=== PATIENT | female | born 1950 | race Caucasian/White ===

== ENCOUNTER 2017-05-05 09:26 | Outpatient (CLI) ==
--- NOTE | 2017-05-08 11:45 | MAMMO ---
EXAM: Digital screening mammogram with tomosynthesis HISTORY: Screening COMPARISON: 02/20/2016 FINDINGS: Digital MLO and CC views of the right and left breast were performed. Tomosynthesis was p erformed. Computer aided detection was utilized. There are scattered fibroglandular densities. Ther e is no evidence for mass, asymmetry, distortion, or suspicious calcifications in either breast. IMPRESSION: 1. No evidence of malignancy in the right or left breast. 2. Annual screening mammogram is recommended in one year. BIRADS category 1, negative examination
== END 2017-05-05 09:27 | disposition home or self-care (01) ==
LOC: RAD 09:26
PROVIDERS: ATTEND Internal Medicine
DX: Z12.31 Encounter for screening mammogram for malignant neoplasm of breast (principal)
CPT/HCPCS: 77067

== ENCOUNTER 2017-07-02 12:28 | Outpatient (CLI) ==
--- NOTE | 2017-07-02 13:26 | DI ---
EXAM: Chest two view, frontal and lateral views. HISTORY: Pleuritic chest pain. COMPARISON: 04/01/2012. FINDINGS: The heart size is normal. There is no pulmonary vascular congestion. The lungs are clear save for calcified granulomatous changes. No pleural effusion or pneumothorax is seen. No acute os seous abnormality identified. IMPRESSION: No acute cardiopulmonary process.
== END 2017-07-02 12:29 | disposition home or self-care (01) ==
LOC: RAD 12:28
PROVIDERS: ATTEND Internal Medicine
DX: R07.81 Pleurodynia (principal)

== ENCOUNTER 2017-09-01 07:45 | Outpatient (CLI) ==
--- NOTE | 2017-09-01 09:40 | CT ---
EXAM: CT of the thoracic spine without contrast History: Thoracic back pain. Comparison: Chest CT 09/01/2017 Technique: Multiplanar CT images through the thoracic spine were obtained without the administration of IV contrast Findings: Calcified granulomas within the spleen and mediastinum. Severe degenerative disc disease within the lower cervical spine. No acute fracture or subluxation of the thoracic spine. Mild chronic compression deformity involving superior endplate of T8. Prominen t intervertebral disc calcification seen at T10-T11. Mild to moderate multilevel degenerative disc s pace narrowing with endplate sclerosis and a few small osteophytes. Bony spinal canal is not signifi cantly compromised. No suspicious osseous lesions. No significant bony neural foraminal narrowing. Impression: 1. No acute osseous abnormality of the thoracic spine. 2. Mild to moderate degenerative disc disease of the thoracic spine. 3. Mild chronic compression deformity involving superior endplate of T8. 4. Severe degenerative disc disease seen within the visualized lower cervical spine.
--- NOTE | 2017-09-01 09:44 | CT ---
EXAM: CT chest with contrast HISTORY: Chest pain in the posterior left-sided rib with no known injury. COMPARISON: CT chest 04/02/2012 TECHNIQUE: Serial axial images of the chest were obtained after IV contrast was administered. These were obtained from the lung apices to the upper abdomen. FINDINGS: The thyroid is normal. Visualized vessels are unremarkable. There is no dissection, aneu rysm or stenosis. The heart is normal in size without pericardial effusion. There are multiple none nlarged mediastinal and hilar lymph nodes which are unchanged. There is no pneumothorax or pleural effusion. There is mild bibasilar atelectasis. There is no acut e consolidation, nodule or mass. The airways are patent. The osseous structures demonstrate no abnormality of the left ribs. The osseous structures demonstr ate a small superior endplate deformity at T9. Disc space material is noted at T11-T10. Soft tissue s in the upper abdomen are unremarkable. IMPRESSION: 1. No visualized rib fracture or acute cardiopulmonary process. 2. Mild scattered degenerative disease of the spine with superior endplate deformity at T9 which is age indeterminate. 3. Multiple nonenlarged mediastinal lymph nodes are likely reactive.
== END 2017-09-01 07:46 | disposition home or self-care (01) ==
LOC: RAD 07:45
PROVIDERS: ATTEND Internal Medicine
DX: R07.9 Chest pain, unspecified (principal); M54.6 Pain in thoracic spine; M85.80 Other specified disorders of bone density and structure, unspecified site
CPT/HCPCS: 36415; 82565

== ENCOUNTER 2018-07-14 07:50 | Outpatient (CLI) ==
--- NOTE | 2018-07-14 09:35 | MAMMO ---
EXAM: Bilateral digital screening mammogram (2-D and 3-D) History: Screening Comparison: Bilateral mammogram 05/05/2017 Findings: MLO and CC views of bilateral breasts demonstrate scattered fibroglandular breast parenchy ma. CAD was reviewed by the radiologist. Tomosynthesis was performed. Stable benign bilateral [address] calcifications. There are no dominant masses, no suspicious microcalcifications and no architectu ral distortions Impression: Benign stable mammogram. Recommend followup routine screening mammography in 1 year. BIRADS 2, benign
== END 2018-07-14 07:51 | disposition home or self-care (01) ==
LOC: RAD 07:50
PROVIDERS: ATTEND Internal Medicine
DX: Z12.31 Encounter for screening mammogram for malignant neoplasm of breast (principal)

== ENCOUNTER 2020-11-02 09:48 | Inpatient (IN) ==
[2020-11-02 10:10] LABS: BORDETELLA PARAPERTUSSIS (PCR) NOT DETECTED (NOT DETECT); BORDETELLA PERTUSSIS (PCR) NOT DETECTED (NOT DETECT); CHLAMYDIA PNEUMONIAE (PCR) NOT DETECTED (NOT DETECT); CORONAVIRUS 229E (PCR) NOT DETECTED (NOT DETECT); CORONAVIRUS HKU1 (PCR) NOT DETECTED (NOT DETECT); CORONAVIRUS NL63 (PCR) NOT DETECTED (NOT DETECT); CORONAVIRUS OC43 (PCR) NOT DETECTED (NOT DETECT); HUMAN METAPNEUMOVIRUS (PCR) NOT DETECTED (NOT DETECT); HUMAN RHINOVIRUS/ENTEROV (PCR) NOT DETECTED (NOT DETECT); INFLUENZA B (PCR) NOT DETECTED (NOT DETECT); MYCOPLASMA PNEUMONIAE (PCR) NOT DETECTED (NOT DETECT); PARAINFLUENZA VIRUS 1 (PCR) NOT DETECTED (NOT DETECT); PARAINFLUENZA VIRUS 2 (PCR) NOT DETECTED (NOT DETECT); PARAINFLUENZA VIRUS 3 (PCR) NOT DETECTED (NOT DETECT); PARAINFLUENZA VIRUS 4 (PCR) NOT DETECTED (NOT DETECT); RESPIRATORY SYNCYTIAL V (PCR) NOT DETECTED (NOT DETECT); SARS_COV_2 (PCR) NOT DETECTED (NOT DETECT)
[2020-11-02 10:57] LABS: ADENOVIRUS (PCR) NOT DETECTED (NOT DETECT)
[2020-11-02] MEDS ORDERED: NITROSTAT SL PRN (11:39)
[2020-11-02] MEDS ORDERED: ATROPINE SULFATE PFS IVP PRN (11:39)
[2020-11-02] MEDS ORDERED: TYLENOL PO PRN (11:39)
[2020-11-02] MEDS ORDERED: TORADOL IVP ONE ×2 (11:57→15:00)
[2020-11-02 12:00] LABS: BASOPHILS % (AUTO) 0.5 % (0.0-3.0); EOSINOPHILS % (AUTO) 0.4 % (0.0-7.0); HEMATOCRIT 46.2 % (37.0-47.0); HEMOGLOBIN 15.1 g/dl (12.0-16.0); IMMATURE GRANULOCYTE % (AUTO) 0.3 % (0.0-5.0); LYMPHOCYTES # (AUTO) 1.2 K/uL (0.60-3.4); MEAN CORPUSCULAR HEMOGLOBIN 29.2 pg (27.0-31.0); MEAN CORPUSCULAR HGB CONC 32.7 (31.8-35.4); MEAN CORPUSCULAR VOLUME 89.4 fl (81.0-99.0); MONOCYTES # (AUTO) 0.5 K/uL (0.4-2.0); NEUTROPHILS # (AUTO) 5.4 K/ul (2.0-6.9); NEUTROPHILS % (AUTO) 74.8 % (42.2-75.2); PLATELET COUNT 239 10^3/uL (140-440); RED BLOOD COUNT 5.17 10^6/ul (4.20-5.40); WHITE BLOOD COUNT 7.28 K/ul (4.6-10.2)
[2020-11-02] MEDS ORDERED: DUONEB NEB SCH (12:00)
[2020-11-02 12:11] LABS: ALANINE AMINOTRANSFERASE 39.8 U/L (0-35); ALBUMIN 4.54 g/dL (3.5-5.0); ALKALINE PHOSPHATASE 96.9 U/L (53-141); ASPARTATE AMINO TRANSFERASE 44.6 U/L (14-36); BILIRUBIN,TOTAL 0.33 mg/dL (0.2-1.3); CARBON DIOXIDE 21.5 mmol/L (22-30.0); CHLORIDE 108.7 mmol/L (98-107); CREATINE KINASE 23.4 U/L (30-135); CREATININE 0.88 mg/dL (0.60-1.30); POTASSIUM 3.63 mmol/L (3.5-5.1); SODIUM 139.9 mmol/L (134.5-145); TOTAL PROTEIN 7.18 g/dL (6.3-8.2)
[2020-11-02 12:12] VITALS: BMI 25.7
[2020-11-02 12:24] LABS: TROPONIN I < 0.012 ng/ml (0.0000-0.120)
[2020-11-02] MEDS: DEXTROSE 5%-1/2NS IV SOLUTION 1,000 ML IV SCH (13:05)
[2020-11-02] MEDS: DECADRON IM SCH (13:06)
[2020-11-02] MEDS: ROCEPHIN 1 GM/50 ML D5W 1 GM/50 ML BAG IV SCH (13:06)
[2020-11-02] MEDS: ZITHROMAX PO SCH (13:07)
--- NOTE | 2020-11-02 13:44 | DI ---
EXAM: CHEST FRONTAL VIEW HISTORY: Shortness of breath, left pleuritic pain COMPARISON: 05/28/2020 FINDINGS: Heart size and mediastinum within normal limits. Lungs are free of infiltrate. No c onsolidation or pleural fluid. There is no pneumothorax or acute bony finding. IMPRESSION: No acute cardiopulmonary process.
[2020-11-02] MEDS: DUONEB NEB SCH ×2 (13:51→20:00)
[2020-11-02 15:14] LABS: BILIRUBIN,URINE Negative (NEGATIVE); CLARITY,URINE Clear (CLEAR); COLOR,URINE Yellow (YELLOW); GLUCOSE, URINE (UA) Negative (NEGATIVE); KETONES,URINE Negative (NEGATIVE); LEUKOCYTE ESTERASE ,URINE Trace (NEGATIVE); NITRITE,URINE Negative (NEGATIVE); PH,URINE 6.5 (5-9); PROTEIN,URINE Negative (NEGATIVE); URINE, BLOOD Negative (NEGATIVE); UROBILINOGEN,URINE 0.2 (0.2)
[2020-11-02 15:22] LABS: YEAST,URINE 1+ (NOT PRESENT)
[2020-11-02 15:23] LABS: MUCUS,URINE 2+ (NOT PRESENT)
[2020-11-02 20:01] LABS: CREATINE KINASE 20.3 U/L (30-135)
[2020-11-02 20:14] LABS: TROPONIN I < 0.012 ng/ml (0.0000-0.120)
[2020-11-02] MEDS: TOPAMAX PO SCH (20:21)
[2020-11-02] MEDS: BUSPAR PO SCH (20:22)
[2020-11-02] MEDS: TRILEPTAL PO SCH (20:22)
[2020-11-02] MEDS: COGENTIN PO SCH (20:23)
[2020-11-02] MEDS: ATIVAN PO SCH (20:23)
[2020-11-02] MEDS: PHENERGAN WITH CODEINE 6.25/10 MG/5 ML PO PRN (22:13)
[2020-11-03 05:14] LABS: BASOPHILS % (AUTO) 0.4 % (0.0-3.0); EOSINOPHILS % (AUTO) 0.8 % (0.0-7.0); HEMATOCRIT 42.1 % (37.0-47.0); HEMOGLOBIN 13.6 g/dl (12.0-16.0); IMMATURE GRANULOCYTE % (AUTO) 0.2 % (0.0-5.0); LYMPHOCYTES # (AUTO) 1.3 K/uL (0.60-3.4); LYMPHOCYTES % (AUTO) 26.1 (10.0-50.0); MEAN CORPUSCULAR HEMOGLOBIN 28.9 pg (27.0-31.0); MEAN CORPUSCULAR HGB CONC 32.3 (31.8-35.4); MEAN CORPUSCULAR VOLUME 89.4 fl (81.0-99.0); MONOCYTES # (AUTO) 0.4 K/uL (0.4-2.0); MONOCYTES % (AUTO) 9.1 (0-10); NEUTROPHILS # (AUTO) 3.1 K/ul (2.0-6.9); NEUTROPHILS % (AUTO) 63.4 % (42.2-75.2); PLATELET COUNT 201 10^3/uL (140-440); RDW COEFFICIENT OF VARIATION 12.6 % (11.6-14.8); RED BLOOD COUNT 4.71 10^6/ul (4.20-5.40); WHITE BLOOD COUNT 4.83 K/ul (4.6-10.2)
[2020-11-03 05:31] LABS: ALANINE AMINOTRANSFERASE 43.7 U/L (0-35); ALBUMIN 3.92 g/dL (3.5-5.0); ALKALINE PHOSPHATASE 84.8 U/L (53-141); BILIRUBIN,TOTAL 0.34 mg/dL (0.2-1.3); BLOOD UREA NITROGEN 13.6 mg/dL (7-17); CALCIUM 8.85 mg/dL (8.4-10.2); CARBON DIOXIDE 20.3 mmol/L (22-30.0); CHLORIDE 112.9 mmol/L (98-107); CREATININE 0.67 mg/dL (0.60-1.30); GLUCOSE 92.2 mg/dL (74-106); POTASSIUM 3.84 mmol/L (3.5-5.1); SODIUM 140.4 mmol/L (134.5-145); TOTAL PROTEIN 6.18 g/dL (6.3-8.2)
[2020-11-03] MEDS: DEXTROSE 5%-1/2NS IV SOLUTION 1,000 ML IV SCH ×2 (05:43→19:28)
[2020-11-03] MEDS: SYNTHROID PO SCH (05:45)
[2020-11-03] MEDS: DUONEB NEB SCH ×4 (06:18→19:55)
[2020-11-03] MEDS ORDERED: TORADOL IVP ONE (08:23)
[2020-11-03] MEDS: NON-FORMULARY MEDICATION (Vortioxetine [Trintellix] 20 mg Tablet) PO SCH (09:26)
[2020-11-03] MEDS: DECADRON IM SCH (09:26)
[2020-11-03] MEDS: ZITHROMAX PO SCH (09:27)
[2020-11-03] MEDS: BUSPAR PO SCH ×2 (09:28→20:41)
[2020-11-03] MEDS: TRILEPTAL PO SCH ×2 (09:29→20:42)
[2020-11-03] MEDS: WELLBUTRIN XL PO SCH (09:29)
[2020-11-03] MEDS: ROCEPHIN 1 GM/50 ML D5W 1 GM/50 ML BAG IV SCH (09:30)
[2020-11-03] MEDS: TOPAMAX PO SCH (20:41)
[2020-11-03] MEDS: COGENTIN PO SCH (20:42)
[2020-11-03] MEDS: ATIVAN PO SCH (20:43)
[2020-11-03] MEDS: PHENERGAN WITH CODEINE 6.25/10 MG/5 ML PO PRN (21:28)
[2020-11-04] MEDS: DUONEB NEB SCH ×4 (04:55→20:55)
[2020-11-04] MEDS: SYNTHROID PO SCH (06:07)
[2020-11-04 06:08] LABS: BASOPHILS % (AUTO) 0.7 % (0.0-3.0); EOSINOPHILS # (AUTO) 0.1 K/ul (0.0-0.7); EOSINOPHILS % (AUTO) 2.3 % (0.0-7.0); HEMATOCRIT 41.3 % (37.0-47.0); HEMOGLOBIN 13.2 g/dl (12.0-16.0); IMMATURE GRANULOCYTE % (AUTO) 0.5 % (0.0-5.0); LYMPHOCYTES # (AUTO) 1.3 K/uL (0.60-3.4); LYMPHOCYTES % (AUTO) 29.5 (10.0-50.0); MEAN CORPUSCULAR HEMOGLOBIN 28.9 pg (27.0-31.0); MEAN CORPUSCULAR VOLUME 90.4 fl (81.0-99.0); MONOCYTES # (AUTO) 0.4 K/uL (0.4-2.0); MONOCYTES % (AUTO) 8.4 (0-10); NEUTROPHILS # (AUTO) 2.6 K/ul (2.0-6.9); NEUTROPHILS % (AUTO) 58.6 % (42.2-75.2); PLATELET COUNT 177 10^3/uL (140-440); RED BLOOD COUNT 4.57 10^6/ul (4.20-5.40)
[2020-11-04 06:28] LABS: ALANINE AMINOTRANSFERASE 37.3 U/L (0-35); ALBUMIN 3.69 g/dL (3.5-5.0); ALKALINE PHOSPHATASE 79.4 U/L (53-141); ASPARTATE AMINO TRANSFERASE 27.9 U/L (14-36); BILIRUBIN,TOTAL 0.26 mg/dL (0.2-1.3); BLOOD UREA NITROGEN 10.3 mg/dL (7-17); CALCIUM 8.65 mg/dL (8.4-10.2); CARBON DIOXIDE 20.2 mmol/L (22-30.0); CHLORIDE 112.9 mmol/L (98-107); CREATININE 0.74 mg/dL (0.60-1.30); GLUCOSE 89.5 mg/dL (74-106); POTASSIUM 3.44 mmol/L (3.5-5.1); TOTAL PROTEIN 5.93 g/dL (6.3-8.2)
[2020-11-04] MEDS: DEXTROSE 5%-1/2NS IV SOLUTION 1,000 ML IV SCH (08:56)
[2020-11-04] MEDS: DECADRON IM SCH (08:58)
[2020-11-04] MEDS ORDERED: VITAMIN D PO SCH (09:00)
[2020-11-04] MEDS: ROCEPHIN 1 GM/50 ML D5W 1 GM/50 ML BAG IV SCH (09:14)
[2020-11-04] MEDS: ZITHROMAX PO SCH (09:15)
[2020-11-04] MEDS: NON-FORMULARY MEDICATION (Vortioxetine [Trintellix] 20 mg Tablet) PO SCH (09:15)
[2020-11-04] MEDS: TRILEPTAL PO SCH ×2 (09:16→21:19)
[2020-11-04] MEDS: MOBIC PO SCH (09:17)
[2020-11-04] MEDS: BUSPAR PO SCH ×2 (09:18→21:20)
[2020-11-04] MEDS: WELLBUTRIN XL PO SCH (09:20)
[2020-11-04] MEDS: PRAVACHOL PO SCH (09:20)
[2020-11-04] MEDS: TOPAMAX PO SCH (21:18)
[2020-11-04] MEDS: ATIVAN PO SCH (21:19)
[2020-11-04] MEDS: COGENTIN PO SCH (21:19)
[2020-11-04] MEDS: PHENERGAN WITH CODEINE 6.25/10 MG/5 ML PO PRN (22:44)
[2020-11-05] MEDS: DUONEB NEB SCH ×3 (04:55→14:35)
[2020-11-05] MEDS: SYNTHROID PO SCH (06:11)
[2020-11-05 07:08] LABS: BASOPHILS # (AUTO) 0.1 K/uL (0-0.2); BASOPHILS % (AUTO) 1.1 % (0.0-3.0); EOSINOPHILS # (AUTO) 0.1 K/ul (0.0-0.7); EOSINOPHILS % (AUTO) 3.1 % (0.0-7.0); HEMATOCRIT 42.6 % (37.0-47.0); HEMOGLOBIN 13.7 g/dl (12.0-16.0); IMMATURE GRANULOCYTE % (AUTO) 0.4 % (0.0-5.0); LYMPHOCYTES # (AUTO) 1.2 K/uL (0.60-3.4); LYMPHOCYTES % (AUTO) 27.3 (10.0-50.0); MEAN CORPUSCULAR HGB CONC 32.2 (31.8-35.4); MEAN CORPUSCULAR VOLUME 90.1 fl (81.0-99.0); MONOCYTES # (AUTO) 0.4 K/uL (0.4-2.0); MONOCYTES % (AUTO) 8.4 (0-10); NEUTROPHILS # (AUTO) 2.7 K/ul (2.0-6.9); NEUTROPHILS % (AUTO) 59.7 % (42.2-75.2); PLATELET COUNT 165 10^3/uL (140-440); RDW COEFFICIENT OF VARIATION 13.2 % (11.6-14.8); RED BLOOD COUNT 4.73 10^6/ul (4.20-5.40); WHITE BLOOD COUNT 4.51 K/ul (4.6-10.2)
[2020-11-05 07:44] LABS: ALANINE AMINOTRANSFERASE 29.8 U/L (0-35); ALBUMIN 3.75 g/dL (3.5-5.0); ALKALINE PHOSPHATASE 83.8 U/L (53-141); ASPARTATE AMINO TRANSFERASE 24.7 U/L (14-36); BILIRUBIN,TOTAL 0.3 mg/dL (0.2-1.3); BLOOD UREA NITROGEN 9.2 mg/dL (7-17); CALCIUM 8.89 mg/dL (8.4-10.2); CARBON DIOXIDE 23.7 mmol/L (22-30.0); CHLORIDE 110.5 mmol/L (98-107); CREATININE 0.77 mg/dL (0.60-1.30); GLUCOSE 84.4 mg/dL (74-106); POTASSIUM 3.56 mmol/L (3.5-5.1); SODIUM 139.6 mmol/L (134.5-145); TOTAL PROTEIN 5.97 g/dL (6.3-8.2)
--- NOTE | 2020-11-05 07:47 | CT ---
EXAM: CT chest without contrast HISTORY: Pneumonia COMPARISON: 10/25/2020, 11/03/2019 TECHNIQUE: Multiple axial images of the chest were obtained without contrast. Images were reformatte d in the sagittal and coronal planes. FINDINGS: Normal appearance thoracic inlet and thyroid gland. No enlarged axillary or mediastinal lymph nodes. Lack of IV contrast limits evaluation for hilar adenopathy. Normal sized heart and thoracic aorta. Esophagus within normal limits. Small hiatal hernia. Patent central airways. No pneumothorax, ple ural effusion or consolidation. Linear band-like atelectasis or scar in the lung bases, unchanged.. Mild biapical pleural scarring is unchanged. Persistent but decreased bilateral patchy subpleural g round-glass opacities compared to 10/25/2020. Stable 0.6 cm nodule in the anterior right middle lobe base (axial 46). No new pulmonary nodule. No acute findings within the visualized upper abdomen. Cholelithiasis. No acute osseous abnormality u nchanged chronic T1 superior endplate compression deformity with Schmorl's node.. IMPRESSION: 1. Persistent but decreased patchy bilateral ground-glass opacities, which may represent infectious/ inflammatory change. 6-month follow-up CT recommended. 2. Stable 0.6 cm right middle lobe nodule. 3. No new pulmonary findings. 4. Cholelithiasis. All CT scans are performed using dose optimization techniques as appropriate to the performed exam an d include at least one of the following: Automated exposure control, adjustment of the mA and/or kV according t o size, and the use of iterative reconstruction technique.
[2020-11-05] MEDS: ROCEPHIN 1 GM/50 ML D5W 1 GM/50 ML BAG IV SCH (08:57)
[2020-11-05] MEDS: WELLBUTRIN XL PO SCH (08:58)
[2020-11-05] MEDS: TRILEPTAL PO SCH ×2 (08:58→20:17)
[2020-11-05] MEDS: DECADRON IM SCH (08:59)
[2020-11-05] MEDS: BUSPAR PO SCH ×2 (08:59→20:16)
[2020-11-05] MEDS: NON-FORMULARY MEDICATION (Vortioxetine [Trintellix] 20 mg Tablet) PO SCH (09:45)
[2020-11-05] MEDS: DEXTROSE 5%-1/2NS IV SOLUTION 1,000 ML IV SCH (11:26)
--- NOTE | 2020-11-05 12:53 | HP ---
DATE OF SERVICE: 11/02/2020 REASON FOR HOSPITALIZATION/HISTORY OF PRESENT ILLNESS: ER followup 10/27/2020. Complains of cough, congestion, pleuritic pain left sided for 7 days. She is weak with poor appetite and fatigue. Cough medication helps at night. No symptoms of CAD. PAST MEDICAL HISTORY: COPD/Asthma MDDD-Dr. Burnette History of UTI's MVP GERD Osteopenia Neuropathy PAST SURGICAL HISTORY: Hysterectomy Back surgery REVIEW OF SYSTEMS: CONSTITUTIONAL: Fever, Fatigue. HEENT: No sinus drainage, no sore throat. RESPIRATORY: Cough, no congestion. CARDIOVASCULAR: Atypical chest pain for coronary artery disease. No angina, CHF symptoms, palpitations. Shortness of breath. GASTROINTESTINAL: No melena or abdominal pain. No GERD. GENITOURINARY: No hematuria, no prostatism, no polyuria. MESSENGER COPY: No blackout, Dizziness, no headache, no double vision. MUSCULOSKELETAL: Osteoarthritis pain, no joint swelling. ENDOCRINE: Weight loss; 8 pounds in 6 weeks, no weight gain. Appetite poor. SKIN: Not dry, no rash. PSYCHIATRIC: Not anxious, no depression, no suicidal thoughts, no homicidal thoughts. SOCIAL HISTORY: Marital Status: . Alcohol Usage: No. Tobacco Usage: No. FAMILY HISTORY: Father Mother Brother 0 Sister 2 MEDICATIONS: Abilify 2mg HS Bupropion 300mg daily Trintellix 20mg daily Trileptal 150mg half tablet BID Buspar 15mg BID Pravastatin 40mg three times a day Topamax 100mg three tablets daily Mobic 15mg three times a week Vitamin D3 1000mg once weekly Levothyroxine 0.025mg Lorazepam 1mg at HS Benztropin 0.5mg at bedtime ALLERGIES: TESSALON PERLES-RASH PHYSICAL EXAMINATION: V/S: Pulse 84, blood pressure 118/70, temperature 99.3, oxygen saturation 99%. BMI 25.4, height 5'4, weight 148.4. GENERAL APPEARANCE: Oriented times three. Dryness. HEENT: Normal. NECK: No JVP, no bruits. RESPIRATORY: Decreased breath sounds. CARDIOVASCULAR: S1, S2, no S3, no murmur. No cyanosis, clubbing. No ascites. GI/ABDOMEN: No tenderness. Bowel sounds are active. EXTREMITIES: No edema, pulses +1, equal. MESSENGER COPY: Deep tendon reflexes, sensory, motor and gait all normal. RECTAL: Coloscopy Dr. Garcia 04/03/2021/PELVIC: Advised yearly, Dr. Sheth 2019. Mammogram 10/05/2020 MM. . ASSESSMENT: 1. Left sided pleuritic pain/ bronchitis 2. Fatigue 3. Shortness of breath 4. Weight loss of 8 pounds in 6 weeks 5. COVID positive 05/18/2020 6. History of UTI 7. Mitral valve prolapse 8. History of COPD/Asthma 9. Status post lumbar surgery ____02/20 10.Left sciatica 11.Int pubic ramus fracture-fall 07/21 12.History of left leg edema 13.History of pleurisy 14.Dyslipidemia PLAN: 1. Routine telemetry orders 2. Continue all home medications 3. Discontinue Medrol dose pack 4. 1000cc D 5 1/2 normal saline 12 hourly 5. 1cc Decadron IM now and QAM 6. Sputum for culture and sensitivity 7. Zithromax 500mg PO daily times three day s 8. Rocephin 1 gram IV today and QAM 9. Oxygen 2 liters canula 10.U/A culture and sensitivity. 11.T4/TSH 12.Phenergan with codeine two tsp PO QID PRN 13.DUO NEBS WID TIME SPENT: More than 70 minutes. MTDD
[2020-11-05] MEDS: VENTOLIN HFA (PER PUFF-WITH SPACER) IH SCH ×2 (14:32→20:05)
[2020-11-05] MEDS: ATROVENT HFA INHALER (PER PUFF-WITH SPACER) IH SCH ×2 (14:33→20:05)
[2020-11-05] MEDS: ATIVAN PO SCH (20:17)
[2020-11-05] MEDS: TOPAMAX PO SCH (20:17)
[2020-11-05] MEDS: COGENTIN PO SCH (20:18)
[2020-11-05] MEDS: PHENERGAN WITH CODEINE 6.25/10 MG/5 ML PO PRN (21:32)
[2020-11-06] MEDS: VENTOLIN HFA (PER PUFF-WITH SPACER) IH SCH ×2 (05:10→10:23)
[2020-11-06] MEDS: ATROVENT HFA INHALER (PER PUFF-WITH SPACER) IH SCH ×2 (05:10→10:23)
[2020-11-06 05:15] LABS: BASOPHILS % (AUTO) 0.8 % (0.0-3.0); EOSINOPHILS # (AUTO) 0.1 K/ul (0.0-0.7); EOSINOPHILS % (AUTO) 2.1 % (0.0-7.0); HEMATOCRIT 42.6 % (37.0-47.0); HEMOGLOBIN 13.5 g/dl (12.0-16.0); IMMATURE GRANULOCYTE % (AUTO) 0.6 % (0.0-5.0); LYMPHOCYTES # (AUTO) 1.6 K/uL (0.60-3.4); LYMPHOCYTES % (AUTO) 29.2 (10.0-50.0); MEAN CORPUSCULAR HEMOGLOBIN 28.7 pg (27.0-31.0); MEAN CORPUSCULAR HGB CONC 31.7 (31.8-35.4); MEAN CORPUSCULAR VOLUME 90.6 fl (81.0-99.0); MONOCYTES # (AUTO) 0.5 K/uL (0.4-2.0); MONOCYTES % (AUTO) 9.2 (0-10); NEUTROPHILS # (AUTO) 3.1 K/ul (2.0-6.9); NEUTROPHILS % (AUTO) 58.1 % (42.2-75.2); PLATELET COUNT 171 10^3/uL (140-440); RDW COEFFICIENT OF VARIATION 13.1 % (11.6-14.8)
[2020-11-06 05:28] LABS: ALANINE AMINOTRANSFERASE 23.2 U/L (0-35); ALBUMIN 3.57 g/dL (3.5-5.0); ALKALINE PHOSPHATASE 85.1 U/L (53-141); ASPARTATE AMINO TRANSFERASE 22.8 U/L (14-36); BILIRUBIN,TOTAL 0.24 mg/dL (0.2-1.3); BLOOD UREA NITROGEN 11.6 mg/dL (7-17); CALCIUM 9.03 mg/dL (8.4-10.2); CARBON DIOXIDE 25.6 mmol/L (22-30.0); CHLORIDE 109.7 mmol/L (98-107); CREATININE 0.9 mg/dL (0.60-1.30); GLUCOSE 89.6 mg/dL (74-106); POTASSIUM 4.16 mmol/L (3.5-5.1); SODIUM 140.8 mmol/L (134.5-145); TOTAL PROTEIN 5.65 g/dL (6.3-8.2)
[2020-11-06 05:52] VITALS: BP 109/66; TEMP 97.4
[2020-11-06] MEDS: SYNTHROID PO SCH (05:53)
[2020-11-06] MEDS ORDERED: OMNICEF PO SCH (09:00)
--- NOTE | 2020-11-06 09:14 | PCM.PROG ---
Attending Provider: ATTENDING PROVIDER: Dr. NEVAEH BARRERA This patient is seen with Muna Rodas, Nurse Practitioner. DATE OF SERVICE: 11/06/20 SUBJECTIVE: This 70 year old /WHITE F was hospitalized 11/02/20. Pleuritic pain has resolved. Cough has improved. The patient states she is feeing better. Up and about eating well. Ready to go home. REVIEW OF SYSTEMS: CONSTITUTIONAL: No night sweats. Fatigue. No fever or chills. HEENT: Eyes: No visual changes. No eye pain. No eye discharge. ENT: No runny nose. No epistaxis. No sinus pain. No odynophagia. No congestion. RESPIRATORY: Cough, no congestion. No hemoptysis. No shortness of breath. CARDIOVASCULAR: No angina symptoms. No CHF symptoms. No atypical chest pain for CAD. No palpitations. No orthopnea. GASTROINTESTINAL: No abdominal pain. No nausea or vomiting. No diarrhea or constipation. No hematemesis. No hematochezia. GENITOURINARY: No urgency. No frequency. No dysuria. No hematuria. No obstructive symptoms. No discharge. No pain. No significant abnormal bleeding. MUSCULOSKELETAL: No musculoskeletal pain; no joint swelling. NEUROLOGICAL: Awake, alert, oriented to time, place and person. No headache. No neck pain. No syncope. No seizures. No dizziness. PSYCHIATRIC: Not anxious. No depression. No suicidal thoughts. No homicidal thoughts. SKIN: No rash. No lesions. No wounds. ENDOCRINE: No unexplained weight loss. No weight gain. HEMATOLOGIC/LYMPHATIC: No anemia. No purpura. No petechiae. No prolonged or excessive bleeding. No palpable lymph nodes. PHYSICAL EXAMINATION: GENERAL: The patient is awake, alert and oriented, lying in bed in no distress. VITAL SIGNS: Temperature 97.4 F, Pulse 63, Respiratory Rate 16, BP 109/66, Pulse Ox 98% HEENT: Head normocephalic, atraumatic. Eyes: Extraocular muscles are intact. Pupils are equal, round and reactive to light and accommodation. Ears: No lesions. Nose appeared normal. Throat: No exudate or erythema. NECK: Supple. No JVD, no carotid bruit. No lymphadenopathy or thyromegaly. LUNGS: Diminished breath sounds. Clear to auscultation. Percussion note normal. Chest symmetrical. HEART: S1, S2, no S3. No murmurs. No cyanosis or clubbing. No ascites. Pulses: Dorsalis pedis and posterior tibial pulses +1 to +2 both sides. ABDOMEN: Soft. Non-tender. Bowel sounds active. No CVA tenderness. No mass fe lt. EXTREMITIES: No edema. Full range of motion of all extremities, equal. NEUROLOGIC: No focal deficit. Cranial nerves II through XII are grossly intact. No headache. No double vision. SKIN: Not dry. Intact. Turgor-normal. LYMPHATIC: No palpable lymph nodes/no lymphedema. MUSCULOSKELETAL: Normal joints with no swelling. Muscle tone is normal. LAB REVIEW: 11/06/20 04:55 11/06/20 04:55 11/06/20 04:55: Sodium 140.8, Potassium 4.16, Chloride 109.7 H, Carbon Dioxide 25.6, Anion Gap 9.66, BUN 11.6, Creatinine 0.90, Estimated GFR (MDRD) 62.00, BUN/Creatinine Ratio 12.88, Glucose 89.6, Calcium 9.03, Total Bilirubin 0.24, AST 22.8, ALT 23.2, Alkaline Phosphatase 85.1, Total Protein 5.65 L, Albumin 3.57, Globulin 2.08, Albumin/Globulin Ratio 1.71 11/06/20 04:55: WBC 5.30, RBC 4.70, Hgb 13.5, Hct 42.6, MCV 90.6, MCH 28.7, MCHC 31.7 L, RDW Coeff of Ekta 13.1, Plt Count 171, Immature Gran % (Auto) 0.6, Neut % (Auto) 58.1, Lymph % (Auto) 29.2, Prentiss % (Auto) 9.2, Eos % (Auto) 2.1, Baso % (Auto) 0.8, Neut # (Auto) 3.1, Lymph # (Auto) 1.6, Prentiss # (Auto) 0.5, Eos # (Auto) 0.1, Baso # (Auto) 0.0, Immature Gran # (Auto) 0.0 ASSESSMENT: Please see below. 1. Left sided pleuritic pain 2. Acute pneumonitis 2. History of COVID May of 2020 PLAN: 1. Discharge home 2. Omnicef 300mg BID for 7 days 3. Prednisone 20mg BID for 3 days and then daily for 4 days 4. Albuterol inhaler two puff TID Plan and coordination of the patient's care discussed in the presence of Demand Manager and nurse. SCRIBED BY: Ed COLVIN scribed while in presence of service performed by Dr. Barrera/Muna Rodas APRN on 11/06/20 ([id number])
[2020-11-06] MEDS: TRILEPTAL PO SCH (09:30)
[2020-11-06] MEDS: PRAVACHOL PO SCH (09:30)
[2020-11-06] MEDS: WELLBUTRIN XL PO SCH (09:30)
[2020-11-06] MEDS: MOBIC PO SCH (09:30)
[2020-11-06] MEDS: DECADRON IM SCH (09:31)
[2020-11-06] MEDS: BUSPAR PO SCH (09:31)
[2020-11-06] MEDS: NON-FORMULARY MEDICATION (Vortioxetine [Trintellix] 20 mg Tablet) PO SCH (09:32)
--- NOTE | 2020-11-06 10:19 | PN ---
DATE OF SERVICE: 11/05/2020 SUBJECTIVE: 70 year old white female hospitalized with double pneumonia. Condition has slowly improved. Pleuritic has completely resolved. Hydration status has improved. Skin turgor is a lot better. REVIEW OF SYSTEMS: CONSTITUTIONAL: No night sweats. Fatigue. No fever or chills. Weak. HEENT: Eyes: No visual changes. No eye pain. No eye discharge. ENT: No runny nose. No epistaxis. No sinus pain. No sore throat. No odynophagia. No congestion. RESPIRATORY: Cough, no congestion. No hemoptysis. No shortness of breath. CARDIOVASCULAR: No angina symptoms. No CHF symptoms. No atypical chest pain for CAD. No palpitations. No PND. No orthopnea. GASTROINTESTINAL: No abdominal pain. No nausea or vomiting. No diarrhea or constipation. No hematemesis. No hematochezia. GENITOURINARY: No urgency. No frequency. No dysuria. No hematuria. No obstructive symptoms. No discharge. No pain. No significant abnormal bleeding. MUSCULOSKELETAL: No musculoskeletal pain; no joint swelling. NEUROLOGICAL: No headache. No neck pain. No syncope. No seizures. No dizziness. PSYCHIATRIC: Not anxious. No depression. No suicidal thoughts. No homicidal thoughts. SKIN: No rash. No lesions. No wounds. ENDOCRINE: No unexplained weight loss. No weight gain. HEMATOLOGIC/LYMPHATIC: No anemia. No purpura. No petechiae. No prolonged or excessive bleeding. No palpable lymph nodes. PHYSICAL EXAMINATION: VITAL SIGNS: Temperature 97.4, pulse 63, respiratory rate 18, blood pressure 150/74 and pulse ox 99%. HEENT: Head normocephalic, atraumatic. Eyes: Extraocular muscles are intact. Pupils are equal, round and reactive to light and accommodation. Ears: No lesions. Nose appeared normal. Throat: No exudate or erythema. NECK: Supple. No JVD, no carotid bruit. No lymphadenopathy or thyromegaly. LUNGS: Dry crepitations, bilaterally. Clear to auscultation. Percussion note normal. Chest symmetrical. HEART: S1, S2, no S3. No murmurs. No cyanosis or clubbing. No ascites. Pulses: Dorsalis pedis and posterior tibial pulses +1 to +2 bilaterally. ABDOMEN: Soft. Nontender. Bowel sounds active. No CVA tenderness. No mass felt. EXTREMITIES: No edema. Full range of motion of all extremities, equal. NEUROLOGIC: No focal deficit. Cranial nerves II through XII are grossly intact. No headache. No double vision. SKIN: Not dry. Intact. Turgor - better. LYMPHATIC: No palpable lymph nodes/no lymphedema. MUSCULOSKELETAL: Normal joints with no swelling. Muscle tone is normal. LABS: Potassium 3.[address] scan of the chest showed improvement, less patchy infiltrate, Cholelithiasis noted. Explained all the finding in detail with the patient. ASSESSMENT: 1. Bilateral pneumonia, clinically and radiographically improvement 2. Status post COVID almost 6 months. 3. Cholelithiasis asymptomatic. PLAN: 1. Continue all the medication including antibiotics, steroids and NEBS 2. The patient is off IV fluids 3. Encourage the patient to eat and walk. CONDITION: Improving. TIME SPENT: More than 30 minutes. Plan and coordination of the patient's care discussed in the presence of nurse. KRYSTAL
--- NOTE | 2020-11-06 11:46 | PN ---
DATE OF SERVICE: 11/03/20 SUBJECTIVE: The patient was seen and examined this morning. The patient's condition has improved. The patient says she is feeling a lot better. Hydration status seems to have improved. Appetite has improved. REVIEW OF SYSTEMS: CONSTITUTIONAL: No night sweats. No fatigue, malaise, lethargy. No fever or chills. HEENT: Eyes: No visual changes. No eye pain. No eye discharge. ENT: No runny nose. No epistaxis. No sinus pain. No sore throat. No odynophagia. No congestion. RESPIRATORY: Mild cough, no congestion. No hemoptysis. Shortness of breath. CARDIOVASCULAR: Pleuritic pain has practically subsided. No angina symptoms. No CHF symptoms. No atypical chest pain for CAD. No palpitations. No PND. No orthopnea. GASTROINTESTINAL: Appetite has improved. No abdominal pain. No nausea or vomiting. No diarrhea or constipation. No hematemesis. No hematochezia. GENITOURINARY: No urgency. No frequency. No dysuria. No hematuria. No obstructive symptoms. No discharge. No pain. No significant abnormal bleeding. MUSCULOSKELETAL: No musculoskeletal pain; no joint swelling. NEUROLOGICAL: No headache. No neck pain. No syncope. No seizures. No dizziness. PSYCHIATRIC: Not anxious. No depression. No suicidal thoughts. No homicidal thoughts. SKIN: No rash. No lesions. No wounds. ENDOCRINE: No unexplained weight loss. No weight gain. HEMATOLOGIC/LYMPHATIC: No anemia. No purpura. No petechiae. No prolonged or excessive bleeding. No palpable lymph nodes. PHYSICAL EXAMINATION: HEENT: Head normocephalic, atraumatic. Eyes: Extraocular muscles are intact. Pupils are equal, round and reactive to light and accommodation. Ears: No lesions. Nose appeared normal. Throat: No exudate or erythema. NECK: Supple. No JVD, no carotid bruit. No lymphadenopathy or thyromegaly. LUNGS: Decreased breath sounds but clear to auscultation. Percussion note normal. Chest symmetrical. HEART: S1, S2, no S3. No murmurs. No cyanosis or clubbing. No ascites. Pulses: Dorsalis pedis and posterior tibial pulses +1 to +2 bilaterally. ABDOMEN: Soft. Nontender. Bowel sounds active. No CVA tenderness. No mass felt. EXTREMITIES: No edema. Full range of motion of all extremities, equal. NEUROLOGIC: No focal deficit. Cranial nerves II through XII are grossly intact. No headache. No double vision. SKIN: Not dry. Intact. Turgor - normal. LYMPHATIC: No palpable lymph nodes/no lymphedema. MUSCULOSKELETAL: Normal joints with no swelling. Muscle tone is normal. ASSESSMENT: 1. BILATERAL PNEUMONITIS WITH ZITHROMAX, ROCEPHIN, STEROIDS, NEBS. 2. THE PATIENT HAD POOR APPETITE AND DEHYDRATION WHICH IS TREATED WITH IV FLUIDS. CONDITION HAS IMPROVED. PLAN: 1. WILL CONTINUE THE SAME MANAGEMENT. The patient's is present in the room. He is happy with the patient's progress. TIME SPENT: More than 30 minutes. Plan and coordination of the patient's care discussed in the presence of nurse. KRYSTAL
--- NOTE | 2020-11-06 12:42 | CM.DICTOOL ---
ADMISSION: 11/02/20 11:19 DISCHARGE: NOVEMBER 06, 2020 DATE OF SERVICE: 11/06/20 FINAL DIAGNOSIS PNEUMONITIS PLEURITIC PAIN, LEFT CHEST COPD ASTHMA DYSLIPIDEMIA HYPOTHYROIDISM GERD NEUROPATHY COVID (05/2020) MITRAL VALVE PROLAPSE PUBIC RAMUS FRACTURE, 07/2019 SCIATICA, LEFT CHOLELITHIASIS LUMBAR SURGERY 02/2020 (DR. ANTOHNY) HYSTERECTOMY LAST VITALS Temp Pulse Resp BP Pulse Ox 97.4 F L 64 16 109/66 98 11/06/20 05:50 11/06/20 08:00 11/06/20 08:00 11/06/20 05:50 11/06/20 05:50 TAKE THESE MEDICATIONS AT HOME Albuterol Sulfate (Albuterol Sulfate (Ventolin Hfa) 18 Gm 1 Puff With Spacer) 2 puff IH RTTID ON LICENSE OF [facility] (NEW RX) Last Admin: 11/06/20 10:23 Dose: 2 puff Documented by: Benztropine Mesylate (Benztropine Mesylate 1 Mg Tablet) 0.5 mg PO BEDTIME ON LICENSE OF [facility] Last Admin: 11/05/20 20:18 Dose: 0.5 mg Documented by: Bupropion HCl (Bupropion Hcl 150 Mg Tab.Er.24h) 300 mg PO QAM ON LICENSE OF [facility] Last Admin: 11/06/20 09:30 Dose: 300 mg Documented by: Buspirone HCl (Buspirone Hcl 10 Mg Tablet) 15 mg PO BID [facility] Last Admin: 11/06/20 09:31 Dose: 15 mg Documented by: Cefdinir (Cefdinir 300 Mg Capsule) 300 mg PO Q12HR [facility] (NEW RX) Stop: 11/09/20 08:59 Last Admin: 11/06/20 09:30 Dose: 300 mg Documented by: Cholecalciferol (Cholecalciferol (Vitamin D3) 1,000 Unit (25 Mcg) Tablet) 1,000 unit PO ARANA ON LICENSE OF [facility] Last Admin: 11/04/20 09:18 Dose: 1,000 unit Documented by: Levothyroxine Sodium (Levothyroxine Sodium 25 Mcg Tablet) 25 mcg PO QDAC [facility] Last Admin: 11/06/20 05:53 Dose: 25 mcg Documented by: Lorazepam (Lorazepam 1 Mg Tablet) 1 mg PO BEDTIME [facility] Last Admin: 11/05/20 20:17 Dose: 1 mg Documented by: Meloxicam (Meloxicam 7.5 Mg Tablet) 15 mg PO [facility] Last Admin: 11/06/20 09:30 Dose: 15 mg Documented by: Non-Formulary Medication (Vortioxetine [Trintellix]) 20 mg PO DAILY ON LICENSE OF [facility] Last Admin: 11/06/20 09:32 Dose: 20 mg Documented by: Oxcarbazepine (Oxcarbazepine 150 Mg Tablet) 75 mg PO BID ON LICENSE OF [facility] Last Admin: 11/06/20 09:30 Dose: 75 mg Documented by: Pravastatin Sodium (Pravastatin Sodium 40 Mg Tablet) 40 mg PO [facility] Last Admin: 11/06/20 09:30 Dose: 40 mg Documented by: Promethazine HCl/Codeine (Promethazine/Codeine Syrup 6.25/10 Mg/5 Ml Disp.Syringe) 5 ml PO Q6H PRN (NEW RX) PRN Reason: Cough Last Admin: 11/05/20 21:32 Dose: 10 ml Documented by: Topiramate (Topiramate 50 Mg Tablet) 300 mg PO BEDTIME ON LICENSE OF [facility] Last Admin: 11/05/20 20:17 Dose: 300 mg Documented by: PREDNISONE 20 MG BID FOR 3 DAYS, THEN DAILY FOR 4 DAYS (NEW RX) ALLERGIES benzonatate [From Blane Felix] Adverse Reaction (Verified 11/02/20 12:32) Rash DISCONTINUED MEDICATIONS NONE NEW PRESCRIPTIONS: VENTOLIN HFA 2 PUFFS TID OMNICEF 300 MG BID FOR 7 DAYS PREDNISONE 20 MG BID FOR 3 DAYS, THEN 20 MG DAILY FOR 4 DAYS PHENERGAN WITH CODEINE 1 TEASPOON EVERY 6 HOURS NEEDED FOR COUGH ALL PRESCRIPTIONS CALLED TO [facility] AT REQUEST SMOKING: NOT APPLICABLE DISEASE SPECIFIC EDUCATION: USE OF ORAL STEROIDS AND RISK OF GI IRRITATION, BONE DEMINERALIZATION NEW PRESCRIPTIONS APPOINTMENT ACTIVITY/NUTRITION LAB REVIEW: 11/06/20 04:55 11/06/20 04:55 11/06/20 04:55: Sodium 140.8, Potassium 4.16, Chloride 109.7 H, Carbon Dioxide 25.6, Anion Gap 9.66, BUN 11.6, Creatinine 0.90, Estimated GFR (MDRD) 62.00, BUN/Creatinine Ratio 12.88, Glucose 89.6, Calcium 9.03, Total Bilirubin 0.24, AST 22.8, ALT 23.2, Alkaline Phosphatase 85.1, Total Protein 5.65 L, Albumin 3.57, Globulin 2.08, Albumin/Globulin Ratio 1.71 11/06/20 04:55: WBC 5.30, RBC 4.70, Hgb 13.5, Hct 42.6, MCV 90.6, MCH 28.7, MCHC 31.7 L, RDW Coeff of Ekta 13.1, Plt Count 171, Immature Gran % (Auto) 0.6, Neut % (Auto) 58.1, Lymph % (Auto) 29.2, [place] % (Auto) 9.2, Eos % (Auto) 2.1, Baso % (Auto) 0.8, Neut # (Auto) 3.1, Lymph # (Auto) 1.6, [place] # (Auto) 0.5, Eos # (Au to) 0.1, Baso # (Auto) 0.0, Immature Gran # (Auto) 0.0 PLAN: DISCHARGE HOME DIET: REGULAR TOLERATED ACTIVITY: RESUME TOLERATED AVOID OUTSIDE EXERTION IN EXTREME HEAT/HUMIDITY AN APPOINTMENT IS SCHEDULED WITH DR. BARRERA/BUTCH SCHUSTER APRN/CAROLYN ARREDONDO APRN ON November AT 2:15 PM CODE STATUS: CPR ONLY. DO NOT INTUBATE MRS. OLIVAS IS ALERT AND ORIENTED X 4. SHE LIVES AT HOME WITH HER , ADONIS. SHE IS AGREEABLE TO PLANS FOR DISCHARGE HOME TODAY. SHE IS INDEPENDENT WITH ACTIVITIES OF DAILY LIVING. MRS. OLIVAS IS AMBULATORY IN THE ROOM WITHOUT USE OF OXYGEN, ASSISTIVE DEVICE OR STAFF ASSISTANCE. SHE IS CONTINENT OF BOWEL AND BLADDER. MEAL INTAKES HAVE BEEN GOOD AT 25-100%. NO REPORTS OF ABDOMINAL PAIN OR NAUSEA. NO PLEURTIC PAIN IS REPORTED TODAY. NO SHORTNESS OF AIR NOTED. OXGYEN SATURATION AT 98% ON ROOM AIR. HYDRATION STATUS IS GOOD. SKIN IS INTACT. MD BUTCH HAMILTON APRN
--- NOTE | 2020-11-06 12:45 | PN ---
DATE OF SERVICE: 11/04/20 SUBJECTIVE: 70-year-old white female hospitalized with pneumonia. REVIEW OF SYSTEMS: CONSTITUTIONAL: Weak and tired. No night sweats. No malaise, lethargy. No fever or chills. HEENT: Eyes: No visual changes. No eye pain. No eye discharge. ENT: No runny nose. No epistaxis. No sinus pain. No sore throat. No odynophagia. No congestion. RESPIRATORY: Mild cough. No hemoptysis. No shortness of breath. CARDIOVASCULAR: No angina symptoms. No CHF symptoms. No atypical chest pain for CAD. No palpitations. No PND. No orthopnea. GASTROINTESTINAL: Appetite is not up to par. No abdominal pain. No nausea or vomiting. No diarrhea or constipation. No hematemesis. No hematochezia. GENITOURINARY: No urgency. No frequency. No dysuria. No hematuria. No obstructive symptoms. No discharge. No pain. No significant abnormal bleeding. MUSCULOSKELETAL: No musculoskeletal pain; no joint swelling. NEUROLOGICAL: No headache. No neck pain. No syncope. No seizures. No dizziness. PSYCHIATRIC: Not anxious. No depression. No suicidal thoughts. No homicidal thoughts. SKIN: No rash. No lesions. No wounds. ENDOCRINE: No unexplained weight loss. No weight gain. HEMATOLOGIC/LYMPHATIC: No anemia. No purpura. No petechiae. No prolonged or excessive bleeding. No palpable lymph nodes. PHYSICAL EXAMINATION: VITAL SIGNS: Temperature 97.5, pulse 75, respiratory rate 16, blood pressure 120/70, pulse ox 100%. HEENT: Head normocephalic, atraumatic. Eyes: Extraocular muscles are intact. Pupils are equal, round and reactive to light and accommodation. Ears: No lesions. Nose appeared normal. Throat: No exudate or erythema. NECK: Supple. No JVD, no carotid bruit. No lymphadenopathy or thyromegaly. LUNGS: Bilateral crepitations, dry. Clear to auscultation. Percussion note normal. Chest symmetrical. HEART: S1, S2, no S3. No murmurs. No cyanosis or clubbing. No ascites. Pulses: Dorsalis pedis and posterior tibial pulses +1 to +2 bilaterally. ABDOMEN: Soft. Nontender. Bowel sounds active. No CVA tenderness. No mass felt. EXTREMITIES: No edema. Full range of motion of all extremities, equal. NEUROLOGIC: No focal deficit. Cranial nerves II through XII are grossly intact. No headache. No double vision. SKIN: Not dry. Intact. Turgor - normal. LYMPHATIC: No palpable lymph nodes/no lymphedema. MUSCULOSKELETAL: Normal joints with no swelling. Muscle tone is normal. LABS: Hemoglobin 13.2, hematocrit 41, WBC 4,400, normal differential, creatinine 0.7, BUN 10, potassium 3.4. ASSESSMENT: 1. Bilateral pneumonia seems to be improving. PLAN: 1. The patient is to have CT scan of the thorax without contrast. 2. Discontinue IV fluids. 3. Continue antibiotics, steroids and nebs. TIME SPENT: More than 30 minutes. Plan and coordination of the patient's care discussed in the presence of nurse. KRYSTAL
--- NOTE | 2020-11-07 10:37 | DS ---
DATE OF SERVICE: 11/06/2020 FINAL DIAGNOSIS: PNEUMONITIS PLEURITIC PAIN, LEFT CHEST COPD ASTHMA DYSLIPIDEMIA HYPOTHYROIDISM GERD NEUROPATHY COVID (05/2020) MITRAL VALVE PROLAPSE PUBIC RAMUS FRACTURE, 07/2019 SCIATICA, LEFT CHOLELITHIASIS LUMBAR SURGERY 02/2020 (DR. ANTHONY) HYSTERECTOMY LAST VITALS: Temp Pulse Resp BP Pulse Ox 97.4 F L 64 16 109/66 98 11/06/20 05:50 11/06/20 08:00 11/06/20 08:00 11/06/20 05:50 11/06/20 05:50 DISCHARGE INSTRUCTIONS: DISCHARGE HOME. AN APPOINTMENT IS SCHEDULED WITH DR. BARRERA/BUTCH SCHUSTER APRN/CAROLYN ARREDONDO APRN ON November AT 2:15 PM. CODE STATUS: CPR ONLY. DO NOT INTUBATE. TAKE THESE MEDICATIONS AT HOME: Albuterol Sulfate (Albuterol Sulfate (Ventolin Hfa) 18 Gm 1 Puff With Spacer) 2 puff IH RTTID [facility] (NEW RX) Last Admin: 11/06/20 10:23 Dose: 2 puff Documented by: Benztropine Mesylate (Benztropine Mesylate 1 Mg Tablet) 0.5 mg PO BEDTIME [facility] Last Admin: 11/05/20 20:18 Dose: 0.5 mg Documented by: Bupropion HCl (Bupropion Hcl 150 Mg Tab.Er.24h) 300 mg PO QAM [facility] Last Admin: 11/06/20 09:30 Dose: 300 mg Documented by: Buspirone HCl (Buspirone Hcl 10 Mg Tablet) 15 mg PO BID [facility] Last Admin: 11/06/20 09:31 Dose: 15 mg Documented by: Cefdinir (Cefdinir 300 Mg Capsule) 300 mg PO Q12HR [facility] (NEW RX) Stop: 11/09/20 08:59 Last Admin: 11/06/20 09:30 Dose: 300 mg Documented by: Cholecalciferol (Cholecalciferol (Vitamin D3) 1,000 Unit (25 Mcg) Tablet) 1,000 unit PO ARANA [facility] Last Admin: 11/04/20 09:18 Dose: 1,000 unit Documented by: Levothyroxine Sodium (Levothyroxine Sodium 25 Mcg Tablet) 25 mcg PO QDAC [facility] Last Admin: 11/06/20 05:53 Dose: 25 mcg Documented by: Lorazepam (Lorazepam 1 Mg Tablet) 1 mg PO BEDTIME [facility] Last Admin: 11/05/20 20:17 Dose: 1 mg Documented by: Meloxicam (Meloxicam 7.5 Mg Tablet) 15 mg PO [facility] Last Admin: 11/06/20 09:30 Dose: 15 mg Documented by: Non-Formulary Medication (Vortioxetine [Trintellix]) 20 mg PO DAILY [facility] Last Admin: 11/06/20 09:32 Dose: 20 mg Documented by: Oxcarbazepine (Oxcarbazepine 150 Mg Tablet) 75 mg PO BID [facility] Last Admin: 11/06/20 09:30 Dose: 75 mg Documented by: Pravastatin Sodium (Pravastatin Sodium 40 Mg Tablet) 40 mg PO [facility] Last Admin: 11/06/20 09:30 Dose: 40 mg Documented by: Promethazine HCl/Codeine (Promethazine/Codeine Syrup 6.25/10 Mg/5 Ml Disp.Syringe) 5 ml PO Q6H PRN (NEW RX) PRN Reason: Cough Last Admin: 11/05/20 21:32 Dose: 10 ml Documented by: Topiramate (Topiramate 50 Mg Tablet) 300 mg PO BEDTIME [facility] Last Admin: 11/05/20 20:17 Dose: 300 mg Documented by: PREDNISONE 20 MG BID FOR 3 DAYS, THEN DAILY FOR 4 DAYS (NEW RX) ALLERGIES: benzonatate [From Tesreadane Isidro] Adverse Reaction (Verified 11/02/20 12:32) Rash DISCONTINUED MEDICATIONS: NONE NEW PRESCRIPTIONS: VENTOLIN HFA 2 PUFFS TID OMNICEF 300 MG BID FOR 7 DAYS PREDNISONE 20 MG BID FOR 3 DAYS, THEN 20 MG DAILY FOR 4 DAYS PHENERGAN WITH CODEINE 1 TEASPOON EVERY 6 HOURS NEEDED FOR COUGH ALL PRESCRIPTIONS CALLED TO [facility] AT REQUEST SMOKING: NOT APPLICABLE DISEASE SPECIFIC EDUCATION: USE OF ORAL STEROIDS AND RISK OF GI IRRITATION, BONE DEMINERALIZATION NEW PRESCRIPTIONS APPOINTMENT ACTIVITY/NUTRITION LAB REVIEW: 11/06/20 04:55 11/06/20 04:55 11/06/20 04:55: Sodium 140.8, Potassium 4.16, Chloride 109.7 H, Carbon Dioxide 25.6, Anion Gap 9.66, BUN 11.6, Creatinine 0.90, Estimated GFR (MDRD) 62.00, BUN/Creatinine Ratio 12.88, Glucose 89.6, Calcium 9.03, Total Bilirubin 0.24, AST 22.8, ALT 23.2, Alkaline Phosphatase 85.1, Total Protein 5.65 L, Albumin 3.57, Globulin 2.08, Albumin/Globulin Ratio 1.71 11/06/20 04:55: WBC 5.30, RBC 4.70, Hgb 13.5, Hct 42.6, MCV 90.6, MCH 28.7, MCHC 31.7 L, RDW Coeff of Ekta 13.1, Plt Count 171, Immature Gran % (Auto) 0.6, Neut % (Auto) 58.1, Lymph % (Auto) 29.2, [place] % (Auto) 9.2, Eos % (Auto) 2.1, Baso % (Auto) 0.8, Neut # (Auto) 3.1, Lymph # (Auto) 1.6, [place] # (Auto) 0.5, Eos # (Auto) 0.1, Baso # (Auto) 0.0, Immature Gran # (Auto) 0.0 DIET: REGULAR TOLERATED ACTIVITY: RESUME TOLERATED AVOID OUTSIDE EXERTION IN EXTREME HEAT/HUMIDITY HOSPITAL COURSE: 70 year old white female who is a direct admit from our office had a complaint of pleuritic pain. She had had a CT scan done in the ER which showed she had bilateral patchy infiltrates. She had a history of COVID back in May. She was admitted and placed on Rocephin 1 gram IV daily along with Solu-Cortef 125mg IV Q 8 hours. All of her home medications were continued. Over the course of several days her pleuritic pain improved. Chest x-ray showed improvement. She was also placed on NEBS Albuterol TID scheduled. Today on day of discharge she has been up and about walking. She states that her pleuritic pain has improved. I do believe that the areas on her chest x-ray are more related to inflammation. Vital signs have all been stable. WBC is normal. HGb 13.5, hct 42.6, plt count 171, WBC 5.3. We will discharge her home on Omnicef 300mg BID for the next 7 days along with Prednisone 20mg daily for the next 5 days. She is going to take her Albuterol inhaler home and do it TID scheduled. We will followup with her in the office next week. TIME SPENT: More than 60 minutes. KRYSTAL
--- NOTE | 2020-11-08 12:48 | PN ---
DATE OF SERVICE: 11/06/2020 SUBJECTIVE: The patient was seen and examined with the Nurse Practitioner. The patient's condition is improved remarkably. She is feeling a lot better. Fatigue still there. Appetite is somewhat better. Hydration status is improved. PHYSICAL EXAMINATION: HEENT: Head normocephalic, atraumatic. Eyes: Extraocular muscles are intact. Pupils are equal, round and reactive to light and accommodation. Ears: No lesions. Nose appeared normal. Throat: No exudate or erythema. NECK: Supple. No JVD, no carotid bruit. No lymphadenopathy or thyromegaly. LUNGS: Dry crepitations at bases. Percussion note normal. Chest symmetrical. HEART: S1, S2, no S3. No murmurs. No cyanosis or clubbing. No ascites. Pulses: Dorsalis pedis and posterior tibial pulses +1 to +2 bilaterally. ABDOMEN: Soft. Nontender. Bowel sounds active. No CVA tenderness. No mass felt. EXTREMITIES: No edema. Full range of motion of all extremities, equal. NEUROLOGIC: No focal deficit. Cranial nerves II through XII are grossly intact. No headache. No double vision. SKIN: Not dry. Intact. Turgor - normal. LYMPHATIC: No palpable lymph nodes/no lymphedema. MUSCULOSKELETAL: Normal joints with no swelling. Muscle tone is normal. LABS: Repeat CT scan has improved PLAN: 1. The patient is going to be discharged home on antibiotics, steroids. CONDITION: Stable TIME SPENT: More than 30 minutes. Plan and coordination of the patient's care discussed in the presence of nurse. KRYSTAL
--- NOTE | 2020-11-08 12:50 | PN ---
11/02/2020: Level 5 11/03/2020: Intermediate 11/04/2020: Intermediate 11/05/2020: Intermediate 11/06/2020: D as in discharge MTDD
== END 2020-11-06 13:50 | disposition home or self-care (01) | DRG 204 ==
LOC: LAB 09:48 → MEDSURG A 11:19
PROVIDERS: ADMIT Internal Medicine; ATTEND Internal Medicine